=== PATIENT | female | born 1960 ===

== ENCOUNTER 2023-09-05 17:59 | Emergency (ER) | payer SELFPAY ==
--- NOTE | 2023-09-05 18:04 | PC.NURSE ---
patient not wanting to stay to be seen. patient alert and oriented x4. advised to come back to ER if symptoms get worse.
== END 2023-09-05 20:04 | disposition left against medical advice (07) ==
LOC: ANHED 18:09
DX: Z53.21 Procedure and treatment not carried out due to patient leaving prior to being seen by health care provider (principal)
CPT/HCPCS: 99199